=== PATIENT | female | born 1960 | race Caucasian/White ===

== ENCOUNTER 2019-01-12 18:59 | Emergency (ER) | payer OTHER ==
[~2019-01-12] VITALS: Ht 160 cm; Wt 77.1 kg
[~2019-01-12 18:59] MED LIST: NAPROXEN500 MG PO; ROBAXIN-750750 MG PO; TRAMADOL HCL50 MG PO
[2019-01-12] MEDS ORDERED: WELLBUTRIN SR150 MG PO (19:18)
[2019-01-12] MEDS ORDERED: CEPHALEXIN500 MG PO (20:15)
== END 2019-01-12 21:04 | disposition home or self-care (01) ==
LOC: ED 18:59
DX: L03.115 Cellulitis of right lower limb (principal); F31.9 Bipolar disorder, unspecified; F17.200 Nicotine dependence, unspecified, uncomplicated; Z88.5 Allergy status to narcotic agent; Z88.2 Allergy status to sulfonamides; Z79.899 Other long term (current) drug therapy
CPT/HCPCS: 73610; 90471; 90715; 99283-25